=== PATIENT | male | born 1965 | race Caucasian/White ===

== ENCOUNTER 2016-10-13 05:54 | Emergency (ER) | payer OTHER ==
[~2016-10-13] VITALS: Ht 175.3 cm; Wt 93.1 kg
[~2016-10-13 05:54] MED LIST: AMOX TR-K CLV1 EAC4 PO; EXCEDRIN EXTRA1 EACH PO; FLAGYL500 MG PO
[2016-10-13] MEDS ORDERED: PROCTO-MED HC30 GM PR (06:57)
[2016-10-13 07:05] VITALS: BP 157/100
[2016-10-13] MEDS ORDERED: LISINOPRIL2.5 MG PO (07:05)
[2016-10-13] MEDS ORDERED: HYDROCHLOROTH12.5 M3 PO (07:05)
== END 2016-10-13 07:06 | disposition home or self-care (01) ==
LOC: EME 05:54
DX: K64.5 Perianal venous thrombosis (principal); I10 Essential (primary) hypertension; Z96.89 Presence of other specified functional implants; Z72.0 Tobacco use
CPT/HCPCS: 99281; 99284

== ENCOUNTER 2016-10-30 15:45 | Emergency (ER) | payer OTHER ==
[~2016-10-30] VITALS: Ht 170.2 cm; Wt 92.7 kg
[~2016-10-30 15:45] MED LIST changes: +HYDROCHLOROTH12.5 M3 PO; +LISINOPRIL2.5 MG PO; +PROCTO-MED HC30 GM PR
[2016-10-30 17:29] LABS: EOSINOPHIL (%) 1.4 % (0-5); EOSINOPHIL COUNT 0.1 K/uL (0-0.3); HEMATOCRIT 50.6 % (38.0-50.0); IMMATURE GRANULOCYTE (%) 0.4 % (0.0-0.7); INSTRUMENT ABS NEUTROPHIL CT 6.5 K/uL; LYMPHOCYTE COUNT 2.1 K/uL (1.0-2.8); MCH 30.4 PG (29.0-34.0); MCV 89.4 FL (86-99); MONOCYTE (%) 6.9 % (3-12); MONOCYTE COUNT 0.7 K/uL (0-0.8); NEUTROPHIL (%) 68.7 % (45-76); NEUTROPHIL COUNT 6.5 K/uL (1.8-6.4); RBC DIS.WIDTH-SD 42.6 % (39-53); RED BLOOD COUNT 5.66 M/uL (4.00-5.50); WHITE BLOOD COUNT 9.5 K/uL (4.1-10.2)
[2016-10-30 17:35] LABS: PLATELET COUNT 162 K/uL (156-360)
[2016-10-30 17:45] LABS: CHLORIDE 104 mEq/L (99-109); POTASSIUM 3.5 mEq/L (3.7-5.4); SODIUM 138 mEq/L (136-147)
[2016-10-30 17:47] LABS: GLUCOSE 114 mg/dL (70-99)
[2016-10-30 17:48] LABS: ANION GAP 12 MEQ/L (2-14)
[2016-10-30 17:49] LABS: TOTAL BILIRUBIN 0.5 mg/dL (0.0-1.0)
[2016-10-30 17:51] LABS: ALKALINE PHOSPHATASE 23 IU/L (3-129); GFR ESTIMATE (CALCULATED) > 59 mL/min/
[2016-10-30 17:52] LABS: UREA NITROGEN (BUN) 10 mg/dL (9-23)
[2016-10-30] MEDS ORDERED: ROBAXIN750 MG PO (19:39)
[2016-10-30] MEDS ORDERED: METAMUCIL0.52 GM PO (19:39)
[2016-10-30] MEDS ORDERED: LIDOCARE1 EACH TP (19:39)
[2016-10-30] MEDS ORDERED: COLACE100 MG PO (19:39)
[2016-10-30 19:59] VITALS: BP 130/78
== END 2016-10-30 20:02 | disposition home or self-care (01) ==
LOC: EME 15:45
PROVIDERS: Emergency Medicine
DX: R55 Syncope and collapse (principal); K62.5 Hemorrhage of anus and rectum; K64.4 Residual hemorrhoidal skin tags; R00.0 Tachycardia, unspecified; I10 Essential (primary) hypertension; F17.200 Nicotine dependence, unspecified, uncomplicated
CPT/HCPCS: 80053; 85025; 99281; 99285; J7030